=== PATIENT | male | born 1950 | race Caucasian/White ===

== ENCOUNTER 2024-04-20 06:01 | Day surgery (SDC) | payer BC ==
[2024-04-15 09:56] LABS: BASOPHILS # (AUTO) 0.04 K/uL (0.00-0.20); BASOPHILS % (AUTO) 0.9 % (0.0-5.0); EOSINOPHILS # (AUTO) 0.05 K/uL (0.00-0.70); EOSINOPHILS % (AUTO) 1.1 % (0.0-8.0); HEMATOCRIT 44.4 % (42-54); IMMATURE GRANULOCYTE ABSOLUTE 0.03 K/uL (0-1); LYMPHOCYTES # (AUTO) 0.9 K/uL (1.0-4.8); LYMPHOCYTES % (AUTO) 20.9 % (21.0-51.0); MEAN CORPUSCULAR HEMOGLOBIN 28.2 pg (27.0-33.0); MEAN CORPUSCULAR VOLUME 88.3 fL (79-99); MONOCYTES # (AUTO) 0.4 K/uL (0.1-1.0); MONOCYTES % (AUTO) 9.4 % (3.0-13.0); PLATELET COUNT (AUTO) 217 K/uL (130-400); RED BLOOD CELL COUNT(AUTO) 5.03 MIL/uL (4.50-6.20); RED CELL DISTRIBUTION WIDTH 13.9 % (11.0-15.5); WHITE BLOOD COUNT (AUTO) 4.5 K/uL (4.8-10.8)
--- NOTE | 2024-04-15 10:00 | EKG ---
[facility] Test Date: 2024-04-15 Test Time: 10:41:27 Pat Name: BRAD SESAY Department: [facility] Room: Gender: Crane Operator Cab: [id number] : [id number] Requested By: EMERITA TRUJILLO Order Number: [id number] Reading MD: Abdullahi Wills Measurements Intervals [place] Rate: 66 P: 42 AL: 169 QRS: 34 QRSD: 94 T: 44 QT: 399 QTc: 418 Interpretive Statements Sinus rhythm No previous ECG available for comparison Electronically Signed On 04-16-2024 14:08:55 BEVERAGE HOST by Abdullahi Wills Please click the below link to view image of tracing.
[2024-04-15 10:24] VITALS: BP 157/87; PULSE 71; RESP 17; TEMP 98.4
--- NOTE | 2024-04-16 17:00 | NUR ---
RE: EKG REPORTED EKG RESULTS TO DR ALEXANDRE, NO NEW ORDERS RECEIVED.
[~2024-04-20] VITALS: Ht 172.7 cm; Wt 81.6 kg
[~2024-04-20 06:01] MED LIST: DONE5TAB33 PO; KETO.5OS OD; LISI10TA24 PO; MELA10CA2 PO; MELO-108 PO; OMEP10CA5 PO; SILD50TA PO; SIMV-43 PO; TAMS-1 PO; TIMO5SOL10 OU; TRAZ-185 PO; VIT1CAPS5 PO
[2024-04-20] MEDS: ceFAZolin SODIUM 2 GM VIAL ONE (06:06)
[2024-04-20] MEDS: LACTATED RINGERS 1000ML 1,000 ML IV ONE (06:06)
[2024-04-20 06:10] VITALS: BP 114/79; PULSE 68; RESP 16; TEMP 97.2
[2024-04-20] MEDS ORDERED: FAMOTIDINE 20MG VIAL IV ONE (06:49)
[2024-04-20] MEDS ORDERED: acetaMINOPHEN 0 ML ONE (06:49)
--- NOTE | 2024-04-20 08:13 | HMCIMG ---
CHEST 1VW HISTORY: Preop COMPARISON: None FINDINGS: A frontal projection of the chest was obtained. No acute pulmonary infiltrates is seen. The heart is normal in size. Mild degenerative changes are seen. No evidence of aortic calcification is seen. IMPRESSION: 1. No acute pulmonary infiltrate is seen.
--- NOTE | 2024-04-20 08:46 | NUR ---
PT SURGERY CANCELLED FOR TODAY PT WITH CONCERNING THORACIC AA THAT NEEDS TO BE EVALUATED FIRST BY CARDIO VASCULAR SURGEON
== END 2024-04-20 08:50 | disposition home or self-care (01) ==
LOC: DAH 06:01
PROVIDERS: ATTEND Student in an Organized Health Care Education/Training Program
DX: M16.11 Unilateral primary osteoarthritis, right hip (principal); Z53.8 Procedure and treatment not carried out for other reasons; I10 Essential (primary) hypertension; E78.5 Hyperlipidemia, unspecified; K21.9 Gastro-esophageal reflux disease without esophagitis; Z90.89 Acquired absence of other organs; Z87.891 Personal history of nicotine dependence; Z79.01 Long term (current) use of anticoagulants; Z98.890 Other specified postprocedural states
CPT/HCPCS: 85025; 85730; 84134; 86140; 36415; 93005; 87641; 71045; A4223 ×2; A4663 ×2; J7120; A5120; A4215; A4213; A4222; A4221; A4216; J3490; J0690

== ENCOUNTER → 2024-06-17 | Outpatient (CLI) | payer BC ==
[~2024-06-17] MED LIST changes: -KETO.5OS OD
[2024-06-17 12:33] LABS: ALBUMIN 3.6 g/dL (3.5-5.0); BILIRUBIN,TOTAL 0.4 mg/dL (0.2-1.0); CREATININE 0.9 mg/dL (0.5-1.3); POTASSIUM 4.1 mmol/L (3.5-5.1); TOTAL PROTEIN, SERUM 6.6 g/dL (6.0-8.3)
== END | disposition home or self-care (01) ==
LOC: LAB 08:50
PROVIDERS: ATTEND Student in an Organized Health Care Education/Training Program
DX: E78.2 Mixed hyperlipidemia (principal); R94.31 Abnormal electrocardiogram [ECG] [EKG]; I71.40 Abdominal aortic aneurysm, without rupture, unspecified
CPT/HCPCS: 36415; 80053; 80061

== ENCOUNTER → 2024-06-18 | Outpatient (CLI) | payer BC ==
[~2024-06-18] MED LIST changes: +IOHEXOL 350 MG/ML 100ML INFUS..BTL IV ONE
--- NOTE | 2024-06-18 12:03 | HMCIMG ---
CT CARDIAC ANGIO W/CONT. CCTA HISTORY: Abnormal EKG COMPARISON: None TECHNIQUE: Multiple sequential axial images of the chest were obtained along with the CT angiogram of the chest study. Patient was given 100 cc of Omnipaque through intravenous route. FINDINGS: There is no evidence of pulmonary nodule or parenchymal disease. No pleural effusion or pericardial effusion is seen. There is no evidence of pneumothorax. There are normal size mediastinal and hilar lymph nodes. The heart is not enlarged. Degenerative changes of the thoracolumbar spine are present. IMPRESSION: 1. No evidence of pulmonary nodule or effusion is seen. Please see CT angiogram report of coronary arteries.
--- NOTE | 2024-06-22 14:08 | HMCSR ---
APPROVED REPORT Indications i71.40, R94.31 Duplex Results A/PTransverseLongitudinalVelocityWaveform Proximal Aorta 2.10cm2.32cm2.20cm84.60 cm/sec Mid Aorta 1.86cm1.96cm1.90cm52.20 cm/sec Distal Aorta 1.59cm1.54cm1.69cm91.90 cm/sec Rt. Common Iliac Artery0.88cm0.88cm1.62uo848.70 cm/sec Lt. Common Iliac Artery 1.06cm1.11cm1.90yd756.00 cm/sec Techologist Impression The abdominal aorta and the right and left common iliac arteries are patent and normal in size withou t evidence of aneurysm. There is evidence of Mild atherosclerotic disease. Conclusion The abdominal aorta and the right and left common iliac arteries are patent and normal in size withou t evidence of aneurysm. There is evidence of Mild atherosclerotic disease. Conclusion The abdominal aorta and the right and left common iliac arteries are patent and normal in size withou t evidence of aneurysm. There is evidence of Mild atherosclerotic disease.
== END | disposition home or self-care (01) ==
LOC: SHCH 08:25
PROVIDERS: ATTEND Student in an Organized Health Care Education/Training Program
DX: I71.40 Abdominal aortic aneurysm, without rupture, unspecified (principal); R94.31 Abnormal electrocardiogram [ECG] [EKG]; M47.815 Spondylosis without myelopathy or radiculopathy, thoracolumbar region
CPT/HCPCS: 75574; 93978; Q9967

== ENCOUNTER 2024-08-03 06:59 | Observation (INO) | payer BC, MEDICARE ==
[2024-07-30 11:58] VITALS: BP 122/71; PULSE 63; RESP 18; TEMP 98.1
[2024-07-30 12:03] LABS: BASOPHILS # (AUTO) 0.04 K/uL (0.00-0.20); EOSINOPHILS # (AUTO) 0.07 K/uL (0.00-0.70); EOSINOPHILS % (AUTO) 1.7 % (0.0-8.0); HEMATOCRIT 42.8 % (42-54); IMMATURE GRANULOCYTE ABSOLUTE 0.01 K/uL (0-1); LYMPHOCYTES # (AUTO) 0.8 K/uL (1.0-4.8); LYMPHOCYTES % (AUTO) 20.9 % (21.0-51.0); MEAN CORPUSCULAR HEMOGLOBIN 29.5 pg (27.0-33.0); MEAN CORPUSCULAR HGB CONC 33.6 g/dL (32.0-36.0); MEAN CORPUSCULAR VOLUME 87.7 fL (79-99); MONOCYTES # (AUTO) 0.4 K/uL (0.1-1.0); MONOCYTES % (AUTO) 9.7 % (3.0-13.0); NEUTROPHILS # (AUTO) 2.7 K/uL (1.8-7.7); NEUTROPHILS % (AUTO) 66.5 % (40.0-77.0); PLATELET COUNT (AUTO) 216 K/uL (130-400); RED BLOOD CELL COUNT(AUTO) 4.88 MIL/uL (4.50-6.20); RED CELL DISTRIBUTION WIDTH 13.6 % (11.0-15.5)
[2024-07-30 12:15] LABS: INR 0.95 (0.85-1.15); PROTHROMBIN TIME 10.1 SEC (9.6-11.6)
[2024-07-30 12:19] LABS: ALBUMIN 3.8 g/dL (3.5-5.0); POTASSIUM 3.8 mmol/L (3.5-5.1)
--- NOTE | 2024-07-30 12:35 | NUR ---
RE: IS IS INITIAL TEACHING DONE BY RT RIRI DURING PREOP
[2024-08-03] VITALS (29 sets, daily range): BP systolic 91–185; BP diastolic 49–100; PULSE 57–92; RESP 15–19; TEMP 97–98.5; O2SAT 97–98
[~2024-08-03] VITALS: Ht 172.7 cm; Wt 81.2 kg
[~2024-08-03 06:59] MED LIST changes: +GUAI-487 PO; -IOHEXOL 350 MG/ML 100ML INFUS..BTL IV ONE; +LACT1TAB26 PO; -MELA10CA2 PO; +MELA10TA2 PO; +MVIT PO; +ROSU10TA72 PO; -SIMV-43 PO
[2024-08-03] MEDS: LACTATED RINGERS 1000ML 1,000 ML IV ONE (07:37)
[2024-08-03] MEDS ORDERED: rocuRONium bROMide 10MG/1ML 5ML VL ONE ×2 (08:08→09:25)
[2024-08-03] MEDS ORDERED: proPOFol 10 MG/ML 20ML VIAL IV ONE (08:08)
[2024-08-03] MEDS ORDERED: LIDOCAINE PF 100MG/5ML (2%) SYRINGE 5ML ONE (08:08)
[2024-08-03] MEDS ORDERED: FENTanyl CITRate PF 50 MCG/1 ML 2ML VIAL ONE (08:09)
[2024-08-03] MEDS ORDERED: ROPivacaine 0.5% 5MG/ML 30ML ONE (08:10)
[2024-08-03] MEDS ORDERED: ketaMINE 50MG/ML SYRINGE 50 MG/ML DISP.SYRIN ONE (08:10)
[2024-08-03] MEDS ORDERED: ondanSETRON 4MG INJ ONE (09:10)
[2024-08-03] MEDS ORDERED: dexaMETHasone SOD PHOSPHATE 10MG/ML 1ML VIAL ONE (09:10)
[2024-08-03] MEDS ORDERED: GLYCOPYRROLATE 0.2 MG/ML 5 ML VIAL ONE (09:18)
[2024-08-03] MEDS ORDERED: TRANEXAMIC ACID 1000MG/10ML ONE (09:19)
[2024-08-03] MEDS ORDERED: phenylEPHRINE HCL 10 MG/ML 1ML VIAL IV ONE (09:19)
[2024-08-03] MEDS: ceFAZolin SODIUM 2 GM VIAL IVPB ONE (09:20)
[2024-08-03] MEDS ORDERED: NEOSTIGMINE METHYLSULFATE 1MG/ML IV ONE (09:26)
[2024-08-03] MEDS ORDERED: FERROUS FUMARATE 324 MG TABLET PO PRN (09:30)
[2024-08-03] MEDS ORDERED: traMADol HCL 50 MG TABLET PO PRN (09:30)
[2024-08-03] MEDS ORDERED: PoTASSium chl 10% ELIXIR 20MEQ 20 MEQ/15 ML UDCUP PO PRN (09:30)
[2024-08-03] MEDS ORDERED: ondanSETRON 4MG INJ IVP PRN (09:30)
[2024-08-03] MEDS ORDERED: CALCIUM CARB 500MG PO PRN (09:30)
[2024-08-03] MEDS ORDERED: HYDROcodone/APAP 5/325 1 TAB TABLET PO PRN ×2 (09:30→10:00)
[2024-08-03] MEDS ORDERED: PoTASSium chloRIDE 20MEQ/100ML 100 ML IV PRN (09:30)
[2024-08-03] MEDS ORDERED: PoTASSium chloRIDE 20MEQ ER 20 MEQ ERTAB PO PRN (09:30)
[2024-08-03] MEDS ORDERED: CYCLOBENZAPRINE HCL 10 MG TABLET PO PRN (09:30)
[2024-08-03] MEDS ORDERED: GUAIFENESIN PO PRN (10:00)
[2024-08-03] MEDS ORDERED: PSEUDOEPHEDRNE HCL PO PRN (10:00)
--- NOTE | 2024-08-03 11:32 | OP ---
Operative Note: DATE OF PROCEDURE: 08/03/24 SURGEON: EMERITA TRUJILLO MD CASH CROP FARMER: Roland Borrego ANESTHESIA: General and fascia iliaca block ANESTHESIOLOGIST/LEGAL COLLECTOR: Codi Grey PREOPERATIVE DIAGNOSIS: Right hip osteoarthritis POSTOPERATIVE DIAGNOSIS: Right hip osteoarthritis PROCEDURE: Right total hip arthroplasty ESTIMATED BLOOD LOSS: 200 cc INDICATIONS: 74-year-old male with right hip osteoarthritis failing conservative management. After discussion of the risks, benefits, and alternatives, the patient voluntarily agreed to undergo the aforementioned procedure. IMPLANTS: Grande and Nephew 58 mm R3 acetabular component with 6.5 mm screws x2 and central hole cover, 0 degree XLPE polyethylene liner, size 10 high offset anthology stem with a 40 mm Oxinium +0 head DESCRIPTION OF PROCEDURE: Patient was properly identified in the preoperative holding area. Surgical site marking was verified and surgery consent reviewed. The patient was then taken to the operating room and placed in supine position on the OR table. After induction of general anesthesia, preoperative antibiotics were given. The patient was then transitioned in the lateral decubitus position with the right side up. All bony prominences were well-padded. Right lower extremity was then prepped and draped in the usual sterile fashion. Surgical time out was done verifying correct surgery, side, site, and location to be performed. We then began the procedure by making approximately 15 cm long incision centered over the greater trochanter. Here we came sharply through skin down to the fascia. Hemostasis was then achieved using Bovie electrocautery. We then incised fascia in line with the skin incision and finger split the tensor muscle proximally. We then placed our Charnley retractor. At this point we identified the vastus ridge and began elevating the full-thickness soft tissue flap off of the vastus ridge, splitting the vastus lateralis and gluteus muscles as necessary. We then proceeded to externally rotate the femur while making this flap. We resected part of the anterior capsule. The femoral head and neck was then delivered into view. We then dislocated the hip and performed a femoral neck osteotomy approximately half fingerbreadth proximal to the lesser trochanter. We then placed our retractors around the superior and anterior portion of the acetabulum and began to remove the labrum circumferentially. We then began reaming the acetabulum where we reamed up to a size 57 ensuring appropriate anteversion and abduction. We then proceeded to trial with the size 58 acetabular component and this appeared to sit well. We opened our size 58 acetabular component and after irrigating out the wound malleted this into place. It appeared to have good press-fit however we elected to place two of the 6.5 mm screws as well. We drilled and filled the screws in standard fashion in the posterior superior portion of the cup. We then placed the manhole cover on the center of the cup. The wound was thoroughly irrigated out further and we placed the acetabular liner and impacted this in place in standard fashion. We then proceeded to reposition our retractors to elevate the proximal femur out of the wound. We then used the box chisel and canal finder to began preparing the femoral side and sequentially broached up to the aforementioned size stem. Once we felt we had good fit, fill, and control of the femur with the stem in place we then used our trial head component and reduce the hip. We noticed slight laxity on soft tissue tensioning and fluoroscopy showed a higher offset in the platinum anatomy. We therefore elected to use a high offset neck. Upon reduction, we had appropriate soft tissue tensioning, limb length and stable range of motion. We therefore dislocated the hip once more removed our trial components thoroughly irrigated the out the wound and placed our final component s in standard fashion. The hip was then reduced with the final components in place. It was found to be stable through range of motion with appropriate soft tissue tensioning and appropriate limb length. At this point we placed a bump under the knee and the foot on the male with a stack of towels to allow for internal rotation. We repaired the abductors back to the greater trochanter using #5 Ethibond. We then repaired the rent in the vastus lateralis and gluteus muscles using #1 Vicryl in a running fashion. We removed our Charnley retractor and began to repair the IT band using #1 Vicryl in interrupted [id number] fashion. At this point we began to close her subcutaneous tissue using 2-0 Vicryl. Running 3-0 Monocryl in subcuticular fashion with Dermabond placed over this for the skin. Island barrier dressing was then applied. Patient was returned to supine position with abduction pillow placed, awakened from anesthesia, and taken to the recovery room in stable condition. EMERITA TRUJILLO MD Aug 03, 2024 11:32
[2024-08-03] MEDS: hydrALAZine 20MG/ML VIAL ONE (12:04)
--- NOTE | 2024-08-03 12:09 | DS ---
Discharge Summary Hospital Course Summary: The patient was admitted to the hospital postoperatively on 08/03/2024 after undergoing right total hip arthroplasty. They did well with routine postoperative pain control. They worked well with physical therapy. They developed some acute blood loss anemia but remained asymptomatic. The hospital course was otherwise uncomplicated. They were subsequently able to be discharged on postoperative day [] once discharge arrangements were made with home health physical therapy. Vba Developer(s): None Procedure(s): Right total hip arthroplasty, 08/03/2024 Assessment/Plan: ASSESSMENT: Status post right total hip arthroplasty-doing well Acute blood loss anemia-asymptomatic PLAN: See discharge instructions Discharge Instructions: Begin working with home health physical therapy. Remembered do not flex the hip more than 90 and do not cross midline at the knees or ankles for the 1st six weeks. If you are side sleeper place a pillow between the knees and ankles to prevent the legs from crossing. Dressing may be removed 08/05/24 and left open to air. Showers ok allowing soap and water to run over the wound. Pat dry. Do not submerge wound in tub/pool. Do not apply ointments. Do not apply Betadine. Do not apply peroxide. Ice packs to decrease pain/swelling. Prescriptions have been sent to the pharmacy: *[place] 5/325mg 1-2 tab every 6 hours as needed for severe pain. (please call for refills) Cyclobenzaprine 5mg 1 tab every 8 hours as needed for muscle spasm pain. Gabapentin 100mg 1 tab every 8 hours (may discontinue if drowsy). Colace 100mg 1 tab orally twice a day as needed for constipation. Aspirin 325mg for 30 days to prevent blood clots. Call for a follow-up appointment in 2-3 weeks at [facility]. Home Medications: Reported Medications Guaifenesin/Pseudoephedrne HCl (Mucinex D ER 600-60 mg Tablet) 600 Mg-60 Mg Tab.er.12h, 1 EACH PO DAILY PRN for ALLERGIES, TAB 07/30/24 Omeprazole (Omeprazole) 10 Mg Capsule.dr, 10 MG PO DAILY, CAP 07/30/24 Melatonin (Melatonin) 10 Mg Tablet, 10 MG PO HS, TAB 07/30/24 Lisinopril (Lisinopril) 10 Mg Tablet, 10 MG PO DAILY, TAB 07/30/24 Meloxicam (Meloxicam) 15 Mg Tablet, 15 MG PO DAILY, TAB 07/30/24 Trazodone HCl (Trazodone HCl) 50 Mg Tablet, 50 MG PO HS, TAB 07/30/24 Tamsulosin HCl (Flomax) 0.4 Mg Cap.er.24h, 0.4 MG PO DAILY, CAPSULE. 07/30/24 Lactobacillus Acidophilus (Probiotic Acidophilus) 2 Billion Cell Tablet, 1 EACH PO DAILY, TAB 07/30/24 Multivitamins,Therapeutic (Multivitamin Tablet) 400 Mcg Tab, 1 TAB PO DAILY, TAB 07/30/24 Rosuvastatin Calcium (Rosuvastatin Calcium) 10 Mg Tablet, 10 MG PO HS, TAB 07/30/24 Sildenafil Citrate (Viagra) 50 Mg Tablet, 50 MG PO DAILY PRN for ERECTILE DYSFUNCTION, TAB 04/15/24 Donepezil HCl (Donepezil HCl) 5 Mg Tablet, 5 MG PO HS, TAB 04/15/24 Timolol Maleate (Timolol Maleate) 0.5 % Susanna.gel, 1 DROP OU BID 04/15/24 Vit A/Vit C/Vit E/Zinc/Copper (Preservision Areds Softgel) [phone] Capsule, 1 EACH PO BID, CAP 04/15/24 Discontinued Reported Medications Tamsulosin HCl (Flomax) 0.4 Mg Cap.er.24h, 1 CAP PO DAILY for 30 Days, #30 CAP 0 Refills 04/15/24 Lisinopril (Lisinopril) 10 Mg Tablet, 1 TAB PO DAILY for 30 Days, #30 TAB 0 Refills 04/15/24 Melatonin (Melatonin) 10 Mg Capsule, 1 CAP PO HS for sleep for 30 Days, #30 CAP 0 Refills 04/15/24 Meloxicam (Meloxicam) 15 Mg Tablet, 1 TAB PO DAILY for 30 Days, #30 TAB 0 Refills 04/15/24 Omeprazole (Omeprazole) 10 Mg Capsule., 1 CAP PO DAILY for 30 Days, #30 CAP 0 Refills 04/15/24 Simvastatin (Simvastatin) 20 Mg Tablet, 20 MG PO AM, TAB 04/15/24 Trazodone HCl (Trazodone HCl) 50 Mg Tablet, 1 TAB PO HS for 30 Days, #30 TAB 0 Refills 04/15/24 EMERITA TRUJILLO MD Aug 03, 2024 12:09
[2024-08-03] MEDS: MEPERIDINE-PF 50 MG/ML SYG ONE (12:18)
--- NOTE | 2024-08-03 12:22 | HMCIMG ---
HIP UNILAT 4VW RIGHT REASON: ORIF RIGHT ANTOINE, SX. COMPARISON: None TECHNIQUE: Fluoroscopic images were obtained. FINDINGS: Please see procedure report by referring physician. IMPRESSION: Intraoperative films.
--- NOTE | 2024-08-03 13:02 | HMCIMG ---
HIP BILAT 2VW HISTORY: Hip surgery COMPARISON: None TECHNIQUE: 2 images of bilateral hips were obtained. FINDINGS: Total right hip replacement changes are seen. There is no acute displaced fracture or dislocation. Degenerative changes are seen. IMPRESSION: 1. Findings as described above.
[2024-08-03] MEDS: ketOROlac 15MG/ML VIAL (15MG/ML) IV SCH (13:05)
--- NOTE | 2024-08-03 14:00 | NUR ---
[facility] IS HOME WITH HOME HEALTH PATIENT S/P ANTOINE; PRIOR TO ADMISSION LIVES W SPOUSE IN HOME WITH 6 STEPS TO FRONT DOOR, IS ACTIVE, USED NO DME, AND DRIVES. STATES NO FINANCIAL STRAIN AND HAS GOOD FAMILY AND SOCIAL CONTACTS. ALICE FOR [facility] SIGNED AND REFERRAL SENT Addendum: 08/04/24 at 1119 by HERMINIA OWEN RN CM Amended: Links added.
[2024-08-03] MEDS: FAMOTIDINE 20MG VIAL IV ONE (14:01)
[2024-08-03] MEDS: ceFAZolin SODIUM 2 GM VIAL ONE (14:01)
[2024-08-03] MEDS: SUGAMMADEX SODIUM 200 MG/2 ML VIAL IV ONE (14:01)
[2024-08-03] MEDS: 0.9%NACL 1000ML 1,000 ML IV SCH (14:16)
[2024-08-03] MEDS: ceFAZolin SODIUM 2 GM VIAL IVP SCH (14:17)
[2024-08-03] MEDS: GABApentin 100 MG CAPSULE PO SCH (14:18)
[2024-08-03] MEDS: HYDROcodone/APAP 5/325 1 TAB TABLET PO PRN (15:17)
--- NOTE | 2024-08-03 15:45 | NUR ---
ORTHO COORDINATOR: TEACHING REGARDING DVT AND PNEUMONIA PREVENTION, PAIN EXPECTATIONS AND PAIN MANAGEMENT. PATIENT IN BED. AT BEDSIDE. B SCD SLEEVES IN PLACE AND FUNCTIONING. INCENTIVE SPIROMETER ON BEDSIDE TRAY. PATIENT RETURN DEMONSTRATED PROPER USE OF INCENTIVE SPIROMETER AND FOOT FLEXION/EXTENSION EXERCISES. PATIENT INSTRUCTED TO USE INCENTIVE SPIROMETER DURING COMMERCIAL BREAKS ON TV. PATIENT AND VERBALIZED UNDERSTANDING. NUMERIC PAIN SCALE REVIEWED. PATIENT RATES CURRENT PAIN 1/10. INSTRUCTED PATIENT PAIN MEDICATION MUST BE REQUESTED. PATIENT VERBALIZED UNDERSTANDING. PATIENT EXPRESSES DESIRE TO DISCHARGE HOME WITH HOME HEALTH PHYSICAL THERAPY. PATIENT DOES NOT NEED DME. NO ADDITIONAL QUESTIONS/CONCERNS AT THIS TIME.
[2024-08-03] MEDS: ZINC PO SCH (21:00)
[2024-08-03] MEDS: VIT C PO SCH (21:00)
[2024-08-03] MEDS: VIT A PO SCH (21:00)
[2024-08-03] MEDS: COPPER PO SCH (21:00)
[2024-08-03] MEDS: VIT E PO SCH (21:00)
[2024-08-03] MEDS: MELATONIN 5 MG TABLET PO SCH (21:45)
[2024-08-03] MEDS: doCUSate SODIUM 100 MG CAP PO SCH (21:45)
[2024-08-03] MEDS: doNEPEZil HCL 5 MG TAB PO SCH (21:45)
[2024-08-03] MEDS: trAZOdone HCL 50 MG TAB PO SCH (21:46)
[2024-08-03] MEDS: atorVAStatin 40 MG TABLET PO SCH (21:46)
[2024-08-04] VITALS (8 sets, daily range): BP systolic 95–136; BP diastolic 56–83; PULSE 66–92; RESP 18; TEMP 97.9–98.7; O2SAT 98–99
[2024-08-04 05:42] LABS: HEMATOCRIT 31.6 % (42-54); MEAN CORPUSCULAR HEMOGLOBIN 29.2 pg (27.0-33.0); MEAN CORPUSCULAR HGB CONC 33.2 g/dL (32.0-36.0); RED BLOOD CELL COUNT(AUTO) 3.59 MIL/uL (4.50-6.20); RED CELL DISTRIBUTION WIDTH 13.8 % (11.0-15.5); WHITE BLOOD COUNT (AUTO) 5.9 K/uL (4.8-10.8)
[2024-08-04 06:01] LABS: POTASSIUM 3.7 mmol/L (3.5-5.1)
--- NOTE | 2024-08-04 08:01 | PN ---
Ortho postop day one. This morning the patient is awake alert and oriented. He is still in bed. I have advised him to spend the majority of his day out of bed. Patient understood and agreed. Vital signs have remained stable he has been afebrile. Laboratory results reviewed. Noted to have a drop in hemoglobin and hematocrit as expected after total hip arthroplasty. Patient is asymptomatic and we will address per protocol as necessary. Voiding on his own without any difficulty but yet to pass gas. Operative findings discussed with the patient. Dressing is intact. Ice is present to operative site. Lower extremity neurovascularly intact. Negative Homans. Patient states that he did not realize it was going to be this painful however he feels his pain has been well managed. I did remind him that he had a hip replacement and pain is as expected. He did very well with physical therapy yesterday in the ambulating about 40 ft. Pending further physical therapy this morning. The anticipated discharge goal is home health/PT. Reinforced incentive spirometry. Assessment: Status post right total hip arthroplasty. Asymptomatic acute postoperative blood loss anemia. Plan: Continue with Dr. Dumont's total hip arthroplasty protocol and discharge planning. Asymptomatic acute postoperative blood loss anemia addressed with the protocol as necessary Vitals/Labs Vital Signs Date Time Temp Pulse Resp B/P (MAP) Pulse Ox O2 Delivery O2 Flow Rate FiO2 08/04/24 07:36 71 18 N/Cannula Low lpm 2.0 28 08/04/24 04:49 97.9 120/57 98 Laboratory Tests 08/04/24 05:24 Medications Current Medications Cefazolin Sodium 2 gm STK-MED ONCE .ROUTE; Start 08/03/24 at 07:06; Stop 08/03/24 at 07:07; Status DC Lactated Ringer's 1,000 ml @ As Directed STK-MED ONCE IV Last administered on 08/03/24at 07:37; Start 08/03/24 at 07:06; Stop 08/03/24 at 07:07; Status DC Famotidine 20 mg STK-MED ONCE IV; Start 08/03/24 at 07:51; Stop 08/03/24 at 07:51; Status DC Lidocaine HCl 100 mg STK-MED ONCE .ROUTE; Start 08/03/24 at 08:08; Stop 08/03/24 at 08:08; Status DC Propofol 200 mg STK-MED ONCE IV; Start 08/03/24 at 08:08; Stop 08/03/24 at 08:08; Status DC Rocuronium [place] 50 mg STK-MED ONCE .ROUTE; Start 08/03/24 at 08:08; Stop 08/03/24 at 08:08; Status DC Fentanyl Citrate 100 mcg STK-MED ONCE .ROUTE; Start 08/03/24 at 08:09; Stop 08/03/24 at 08:09; Status DC Ropivacaine 150 mg STK-MED ONCE .ROUTE; Start 08/03/24 at 08:10; Stop 08/03/24 at 08:10; Status DC Ketamine HCl 50 mg STK-MED ONCE .ROUTE; Start 08/03/24 at 08:10; Stop 08/03/24 at 08:10; Status DC Dexamethasone Sodium Phosphate 10 mg STK-MED ONCE .ROUTE; Start 08/03/24 at 09:10; Stop 08/03/24 at 09:10; Status DC Ondansetron HCl 4 mg STK-MED ONCE .ROUTE; Start 08/03/24 at 09:10; Stop 08/03/24 at 09:10; Status DC Glycopyrrolate 1 mg STK-MED ONCE .ROUTE; Start 08/03/24 at 09:18; Stop 08/03/24 at 09:18; Status DC Tranexamic Acid 1,000 mg STK-MED ONCE .ROUTE; Start 08/03/24 at 09:19; Stop 08/03/24 at 09:19; Status DC Phenylephrine HCl 10 mg STK-MED ONCE IV; Start 08/03/24 at 09:19; Stop 08/03/24 at 09:20; Status DC Rocuronium [place] 50 mg STK-MED ONCE .ROUTE; Start 08/03/24 at 09:25; Stop 08/03/24 at 09:25; Status DC Sodium Chloride 1,000 ml @ 100 mls/hr Q10H IV Last administered on 08/04/24at 01:35; Start 08/03/24 at 09:30; Stop 08/04/24 at 09:29 Polyethylene Glycol 17 gm DAILY PO; Start 08/04/24 at 09:00; Stop 09/03/24 at 08:59 Bisacodyl 10 mg DAILY PRN RC; Start 08/06/24 at 09:30; Stop 09/05/24 at 09:29 Ketorolac Tromethamine 15 mg Q6H PRN IV; Start 08/04/24 at 09:30; Stop 08/09/24 at 09:29 Ferrous Fumarate 324 mg DAILY PRN PO; Start 08/03/24 at 09:30; Stop 09/02/24 at 09:29 Calcium Carbonate 500 mg Q12H PRN PO; Start 08/03/24 at 09:30; Stop 09/02/24 at 09:29 Ondansetron HCl 4 mg Q6H PRN IVP; Start 08/03/24 at 09:30; Stop 09/02/24 at 09:29 Cefazolin Sodium 2 gm Q8H IVP Last administered on 08/03/24at 21:47; Start 08/03/24 at 14:30; Stop 08/03/24 at 22:31; Status DC Gabapentin 100 mg TID PO Last administered on 08/03/24at 21:45; Start 08/03/24 at 14:00; Stop 09/02/24 at 13:59 Cyclobenzaprine HCl 5 mg Q8H PRN PO; Start 08/03/24 at 09:30; Stop 09/02/24 at 09:29 Docusate Sodium 100 mg BID PO Last administered on 08/03/24at 21:45; Start 08/03/24 at 21:00; Stop 09/02/24 at 20:59 Ketorolac Tromethamine 15 mg Q8H IV Last administered on 08/04/24at 01:58; Start 08/03/24 at 09:30; Stop 08/04/24 at 01:31; Status DC Aspirin 325 mg DAILY PO; Start 08/04/24 at 09:00; Stop 09/03/24 at 08:59 Potassium Chloride 100 ml @ 100 mls/hr AD PRN IV; Start 08/03/24 at 09:30; Stop 09/02/24 at 09:29 Potassium Chloride 20 meq AD PRN PO; Start 08/03/24 at 09:30; Stop 09/02/24 at 09:29 Potassium Chloride 20 meq AD PRN PO; Start 08/03/24 at 09:30; Stop 09/02/24 at 09:29 Tramadol HCl 50 mg Q6H PRN PO; Start 08/03/24 at 09:30; Stop 08/08/24 at 09:29 Acetaminophen/ Hydrocodone Bitart Q4H PRN PO; Start 08/03/24 at 09:30; Stop 08/03/24 at 09:38; Status DC Donepezil HCl 5 mg HS PO Last administered on 08/03/24at 21:45; Start 08/03/24 at 21:00; Stop 09/02/24 at 20:59 Lisinopril 10 mg DAILY PO; Start 08/04/24 at 09:00; Stop 09/03/24 at 08:59 Multivitamins Therapeutic 1 tab DAILY PO; Start 08/04/24 at 09:00; Stop 09/03/24 at 08:59 Tamsulosin HCl 0.4 mg DAILY PO; Start 08/04/24 at 09:00; Stop 09/03/24 at 08:59 Trazodone HCl 50 mg HS PO Last administered on 08/03/24at 21:46; Start 08/03/24 at 21:00; Stop 09/02/24 at 20:59 Home Med Guaifenesin/ Pseudoephedrne HCl (M... DAILY PRN PO; Start 08/03/24 at 10:00; Stop 09/02/24 at 09:59 Home Med Lactobacillus Acidophilus (Probio... DAILY PO; Start 08/04/24 at 09:00; Stop 09/03/24 at 08:59 Melatonin 10 mg HS PO Last administered on 08/03/24at 21:45; Start 08/03/24 at 21:00; Stop 09/02/24 at 20:59 Meloxicam 15 mg DAILY PO; Start 08/04/24 at 09:00; Stop 09/03/24 at 08:59 Pantoprazole Sodium 40 mg DAILY PO; Start 08/04/24 at 09:00; Stop 09/03/24 at 08:59 Atorvastatin Calcium 40 mg HS PO Last administered on 08/03/24at 21:46; Start 08/03/24 at 21:00; Stop 09/02/24 at 20:59 Home Med Sildenafil Citrate (Viag... DAILY PRN PO; Start 08/03/24 at 10:00; Stop 09/02/24 at 09:59 Timolol Maleate 1 DROP OP BID BID OP; Start 08/04/24 at 09:00; Stop 09/03/24 at 08:59 Home Med Vit A/Vit C/ Vit E/Zinc/ Knife Blade Polisher... BID PO; Start 08/03/24 at 21:00; Stop 09/02/24 at 20:59 Neostigmine Methylsulfate 10 mg STK-MED ONCE IV; Start 08/03/24 at 09:26; Stop 08/03/24 at 09:27; Status DC Acetaminophen/ Hydrocodone Bitart 1 tab Q6H PRN PO; Start 08/03/24 at 10:00; Stop 08/08/24 at 09:59 Acetaminophen/ Hydrocodone Bitart 2 tab Q6H PRN PO Last administered on 08/03/24at 15:17; Start 08/03/24 at 10:00; Stop 08/08/24 at 09:59 Cefazolin Sodium 2 gm STK-MED ONCE IVPB Last administered on 08/03/24at 09:20; Start 08/03/24 at 09:20; Stop 08/03/24 at 11:37; Status DC Tranexamic Acid 1,000 mg STK-MED ONCE IV Last administered on 08/03/24at 09:25; Start 08/03/24 at 09:25; Stop 08/03/24 at 11:37; Status DC Tranexamic Acid 1,000 mg STK-MED ONCE IV Last administered on 08/03/24at 10:58; Start 08/03/24 at 10:58; Stop 08/03/24 at 11:37; Status DC Hydralazine HCl 20 mg STK-MED ONCE .ROUTE Last administered on 08/03/24at 12:04; Start 08/03/24 at 12:00; Stop 08/03/24 at 12:01; Status DC Meperidine HCl 50 mg STK-MED ONCE .ROUTE Last administered on 08/03/24at 12:18; Start 08/03/24 at 12:12; Stop 08/03/24 at 12:12; Status DC AMIRAH ZHU NP Aug 04, 2024 08:01
[2024-08-04] MEDS: TIMOLOL MALEATE 0.5% 5 ML BOTTLE OP SCH (09:00)
[2024-08-04] MEDS: MULTIVITAMIN TABLET PO SCH (09:16)
[2024-08-04] MEDS: MELOXICAM 7.5 MG TABLET PO SCH (09:16)
[2024-08-04] MEDS: ASPIRIN 325MG EC TAB PO SCH (09:16)
[2024-08-04] MEDS: tamSULOsin HCL 0.4 MG CAP.ER.24H PO SCH (09:16)
[2024-08-04] MEDS: PANTOPrazole 40 MG TAB DR PO SCH (09:16)
[2024-08-04] MEDS: LISINOPRIL 10 MG TABLET PO SCH (09:17)
[2024-08-04] MEDS: polyETHYLene GLYCol 3350 17 GM POWD.PACK PO SCH (09:17)
[2024-08-04] MEDS ORDERED: ketOROlac 15MG/ML VIAL (15MG/ML) IV PRN (09:30)
[2024-08-04] MEDS ORDERED: ASPI-891 PO (16:21)
[2024-08-04] MEDS ORDERED: GABA100C PO (16:21)
[2024-08-04] MEDS ORDERED: CYCL-309 PO (16:21)
[2024-08-04] MEDS ORDERED: HYDR-4060 PO (16:21)
[2024-08-04] MEDS ORDERED: DOCU-116 PO (16:21)
--- NOTE | 2024-08-04 16:45 | NUR ---
PATIENT DISCHARGED. IV REMOVED. EDUCATION PROVIDED TO PATIENT ON POST OPERATIVE CARE, MEDICATIONS TO START AND CONTINUE, AND EDUCATION ON FALL PREVENTION, HYPERTENSION, AND GERD. PATIENT WAITING ON A RIDE AT THIS TIME.
--- NOTE | 2024-08-04 17:47 | NUR ---
DISCHARGE REPORT CALLED IN TO [facility]. SPOKE WITH CECILIA PERSON AND PROVIDED REPORT ON PATIENT'S CONDITION AND MD'S ORDERS. ALL QUESTIONS ANSWERED. VOICED UNDERSTANDING.
[2024-08-06] MEDS ORDERED: BisaCODYL 10 MG SUPP.RECT RC PRN (09:30)
== END 2024-08-04 17:30 | disposition home or self-care (01) ==
LOC: DAH 06:59 → DAHIP 07:00 → DAH 07:00 → 4DH 13:05
PROVIDERS: ADMIT Student in an Organized Health Care Education/Training Program; ATTEND Student in an Organized Health Care Education/Training Program
DX: M16.11 Unilateral primary osteoarthritis, right hip (principal); G89.18 Other acute postprocedural pain; D62 Acute posthemorrhagic anemia; I10 Essential (primary) hypertension; E78.5 Hyperlipidemia, unspecified; K21.9 Gastro-esophageal reflux disease without esophagitis; Z79.899 Other long term (current) drug therapy
CPT/HCPCS: 82040; 80048 ×2; 85025; 85610; 85730; 84134; 86140; 36415 ×2; 87641; 64447; 73503; 96365; 96366 ×2; 96375; 27130; 73521; 97116 ×3; 96376; 85027; 97530 ×3; G0378 ×26; A4600; A4223 ×2; A4663; J7120 ×2; C1776; J3490 ×8; J3010; J1100; J2003; J0360; J2704; J2405; J2175; J2795; J1885 ×2; J2371; J0690 ×4; A4649 ×2; A4930; A6255; A5120; A4215; A4213; A4222; A4221; A4216; J2710

== ENCOUNTER → 2024-09-21 | Outpatient (CLI) | payer MEDICARE ==
[~2024-09-21] MED LIST changes: +ASPI-891 PO; +CYCL-309 PO; +DOCU-116 PO; +GABA100C PO; +HYDR-4060 PO; -TAMS-1 PO; +TAMS-55 PO
[2024-09-21 09:44] LABS: CHOLESTEROL 140 mg/dL (<200); HDL CHOLESTEROL 54 mg/dL (29-71); LDL DIRECT 77 mg/dL (0-99); TRIGLYCERIDES 57 mg/dL (30-200)
== END | disposition home or self-care (01) ==
LOC: LAB 08:47
PROVIDERS: ATTEND Student in an Organized Health Care Education/Training Program
DX: I10 Essential (primary) hypertension (principal); E78.2 Mixed hyperlipidemia; I71.40 Abdominal aortic aneurysm, without rupture, unspecified; R94.31 Abnormal electrocardiogram [ECG] [EKG]
CPT/HCPCS: 36415; 80061

== ENCOUNTER → 2024-09-30 | Outpatient (CLI) | payer MEDICARE ==
--- NOTE | 2024-09-30 10:37 | HMCIMG ---
US ARTERIAL BILAT LOW EXT DUPL HISTORY: Claudication COMPARISON: None TECHNIQUE: Bilateral lower extremity arterial Doppler ultrasound study was performed. FINDINGS: Normal triphasic and biphasic arterial waveforms are noted in the common femoral, deep femoral, superficial femoral, popliteal, posterior tibial and dorsalis pedal arteries. On the right, the peak systolic velocity of the common femoral artery is 157 cm/s, the proximal femoral artery is 70 cm/s, the mid femoral artery is 83 cm/s, the distal femoral artery is 115 cm/s, the proximal popliteal artery is 75 cm/s, the distal popliteal artery is 63 cm/s, the anterior tibial artery is 34 cm/s, the posterior tibial artery artery is 75 cm/s,and the dorsalis pedal artery is 20 cm/s. On the left the peak systolic velocity of the common femoral artery is 23 cm/s, the proximal femoral artery is 88 cm/s, the mid femoral artery is 90 cm/s, the distal femoral artery is 88 cm/s, the proximal popliteal artery is 60 cm/s, the distal popliteal artery is 60 cm/s, the anterior tibial artery is 58 cm/s, the posterior tibial artery artery is 89 cm/s,and the dorsalis pedal artery is 35 cm/s. IMPRESSION: 1. Atherosclerotic disease. 2. Otherwise normal triphasic and biphasic arterial waveforms noted of the lower extremity artery system.
== END ==
LOC: RAH 09:23
PROVIDERS: ATTEND Student in an Organized Health Care Education/Training Program
DX: I70.90 Unspecified atherosclerosis (principal); I73.9 Peripheral vascular disease, unspecified
CPT/HCPCS: 93925